=== PATIENT | female | born 1935 | race Caucasian/White ===

== ENCOUNTER 2017-02-24 23:49 | Inpatient (IN) ==
--- NOTE | 2017-02-24 23:56 | Emergency Department Note ---
Disposition Clinical Impression: Acute renal failure, Bilateral hip pain, Fall, CKD (chronic kidney disease), stage III, Osteoporosis, UTI (urinary tract infection) Disposition: Admitted As Inpatient Condition: Fair Referrals: Jazzy Powell MD [Primary Care Provider] - Forms: ED Satisfaction Letter Time of Disposition: 02:37 (Dr Tran [facility]) Lower Extremity Injury HPI - General Chief Complaint: ED Extremity Injury, Lower Stated Complaint: Right hip pain S/P fall, states numerous falls pas Time Seen by Provider: 02/24/17 23:53 Source: patient Mode of arrival: ambulatory Limitations: no limitations Nursing Notes Reviewed: Yes Vital Signs Reviewed: Yes - History of Present Illness HPI Narrative: Elderly female who has been ambulating at home in the past 3-4 days as had significant number of falls approximate 7 a day for yesterday to the day before the point where she fell this evening was unable to get up and bear weight family was unable to help her get up because of pain she denies numbness tingling patient just states that she feels like her legs are giving out when she has no energy she denies any calf pain or tenderness noted patient denies any ankle or knee pain patient just states that she gets cramping charley horses in her leg she supposed to use a walker but tends not to use the walker this evening when she was trying to walk to go [facility] she said she just collapsed denied the chest pain chest pressure she did have a little bit of shortness of breath denies any blurred vision double vision admits she fell the other day and struck and hit her head she denies Ane rashes or lesions she denies though any loss of bowel or bladder control family tells me though that she is intact mentally but has had no alteration of her mental status Pt Subjective Complaint: hip injury Injury location: Bilateral hip Onset (ago): 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 Mechanism of Injury: fall Context: fall, direct blow, walking Place: home Pain Severity: moderate Pain Scale: 5 Improves with: nothing Worsens with: nothing Associated symptoms: Reports: able to partially bear weight, snap/pop sensation , weakness - Related Data Home Medications Medication Instructions Recorded Confirmed Amlodipine [Norvasc] 10 mg PO DAILY 01/07/15 02/22/17 Atenolol [Tenormin] 100 mg PO DAILY 01/07/15 02/22/17 Cholecalciferol (Vitamin D3) 2,000 unit PO DAILY 01/07/15 02/22/17 [Vitamin D] Colesevelam HCl [Welchol] 1,250 mg PO BID 01/07/15 02/22/17 Febuxostat [Uloric] 80 mg PO DAILY 01/07/15 02/22/17 Omeprazole [PriLOSEC] 40 mg PO DAILY 01/07/15 02/22/17 OxyCODONE/APAP 5/325 [Percocet 1 each PO Q6HR 01/07/15 02/22/17 5/325] Multivitamin/Ferrous Sulfate 18 mg PO DAILY 05/13/16 02/22/17 [One-Daily Zmsqp-Hzd-Eypa Tab] [place]-3/Dha/Epa/Fish Oil [Fish Oil 1,000 mg PO DAILY 05/13/16 02/22/17 1,000 mg Softgel] Gabapentin [Neurontin] 600 mg PO TID 06/02/16 02/22/17 Levothyroxine [Synthroid] 75 mcg PO 0630 06/02/16 02/22/17 hydroCHLOROthiazide 12.5 mg PO DAILY 02/11/17 02/22/17 [Hydrochlorothiazide] Gemfibrozil [Lopid] 600 mg PO DAILY 02/22/17 02/22/17 Previous Rx's Medication Instructions Recorded Ondansetron HCl [Zofran] 4 mg PO Q6HR PRN #8 tablet 02/11/17 Allergies Allergy/AdvReac Type Severity Reaction Status Date / Time naproxen [From Naprosyn] Allergy Rash Verified 02/22/17 13:31 senna Allergy Hives Verified 02/22/17 13:31 All systems ED: reviewed and negative except as stated. Review of Systems: As Per HPI Constitutional: Reports: weakness. Denies: fever, chills Eyes: Denies: eye pain ENT ED: Denies: ear pain, throat pain, congestion Cardiovascular: Denies: chest pain, palpitations, dyspnea on exertion Respiratory: Reports: dyspnea. Denies: cough, wheezes Gastrointestinal: Denies: abdominal pain, nausea, vomiting Genitourinary: Denies: urgency, dysuria Musculoskeletal: Reports: other (pelvic and hip pain) Integumentary: Denies: rash, abrasion Neurological: Reports: weakness, abnormal gait. Denies: headache Psychiatric: Denies: anxiety Endocrine: Reports: fatigue. Denies: heat or cold intolerance Hematological/Lymphatic: Reports: easy bruising. Denies: easy bleeding Allergic/Immunologic: Denies: facial swelling Past Medical History - Past Medical History Attestation: Yes The following information was validated with the patient. Source: patient, old records reviewed, obtained from family, nursing notes reviewed Medical history: Reports: arthritis (Osteoarthritis and gout), CVA, diabetes, GERD, hyperlipidemia, hypertension, peripheral artery disease, renal disease, other (Chronic low back pain, spinal stenosis) Surgical history: Reports: cataract, hysterectomy, knee replacement, pacemaker/ AICD, other (Hemorrhoidectomy), vascular surgery (Abdominal aortic aneurysm repair) Psychiatric history: Reports: no psych history WASHERY BOSS history: Reports: no WASHERY BOSS history - Social History Smoking Status: Never smoker Smokeless Tobacco Status: No Alcohol use: Reports: none Drug use: Reports: none Physical Exam - General Limitations: no limitations General appearance: alert, in no apparent distress, anxious - Head Head exam: normocephalic, normal inspection - Expanded Head Exam 1 - Small hematoma - Eye Eye exam: Present: normal appearance, PERRL, EOMI - ENT ENT exam: normal exam, normal oropharynx, mucous membranes moist, normal external ear exam - Neck Neck exam: Present: normal inspection, full ROM, trachea midline - Chest Chest inspection: Present: normal inspection, symmetric chest wall rise - Respiratory Respiratory exam: Present: normal lung sounds bilaterally - Cardiovascular Cardiovascular exam: Present: regular rate, normal rhythm, normal heart sounds - Abdominal Exam Abdominal exam: Present: soft, Non-Tender, normal bowel sounds. Absent: mass, pulsatile mass - Expanded Upper Extremity Exam Shoulder exam: Present: normal inspection, full ROM Arm exam: Present: normal inspection, full ROM Elbow exam: Present: normal inspection, full ROM Forearm/Wrist exam: Present: normal inspection, full ROM Hand exam: Present: normal inspection, full ROM Vascular exam: Normal: capillary refill, radial pulse - Expanded Lower Extremity Exam Hip/Pelvis exam: Present: normal inspection, full ROM, tenderness (over peewee greater trochanteric processes), pelvis stable. Absent: swelling, deformity, internal rotation, shortening Upper leg exam: Present: normal inspection, full ROM Knee exam: Present: normal inspection, full ROM Lower leg exam: Present: normal inspection, full ROM Ankle exam: Present: normal inspection, full ROM Foot/toe exam: Present: normal inspection, full ROM Neurovascular/Tendon exam: Present: normal capillary refill, normal fine/light touch. Absent: motor deficit, sensory deficit, tendon deficit Gait: observed and limited by pain (can wgt transfer) - Back Exam Back exam: Present: normal inspection, full ROM. Absent: muscle spasm - Neurological Exam Neurological exam: Present: alert, oriented X3, CN II-XII intact - Psychiatric Psychiatric exam: Present: normal affect, normal mood - Skin Skin exam: Present: warm, dry, intact, normal color Course Course Narrative: Patient seen and examined laboratory data was ordered took a long time to obtain the results but her x-rays have been returned and reviewed showing no acute fractures dyscrasias or evidence of an acute stroke as result with reviewing the laboratory data her BUN/creatinine have gone up 4 times their standard since 2 weeks prior H could account for her increased falls and weakness where she follows with Dr. Mcknight at [facility] as result patient will be brought in IV hydrated if improved will be discharged home if failure we will transfer her to [facility] for further management - Consultations Consultation #1: Dr Tran Called at 0230 Vital Signs Temperature 98.9 F 02/24/17 23:58 Pulse Rate 70 02/24/17 23:58 Respiratory Rate 16 02/24/17 23:58 Blood Pressure 105/74 02/24/17 23:58 O2 Sat by Pulse Oximetry 96 02/24/17 23:58 Temperature 98.2 F 02/25/17 02:20 Pulse Rate 70 02/25/17 02:20 Respiratory Rate 16 02/25/17 02:20 Blood Pressure 112/82 02/25/17 02:20 O2 Sat by Pulse Oximetry 95 02/25/17 02:20 Oxygen Delivery Oxygen Delivery Room Air Extremity Injury, Lower - MDM Narrative Medical decision making narrative: Current falls is this due to metabolic or infectious etiology or is it due to osteoporosis fracture dislocation subluxation or even resulting in a fracture dislocation or subluxation cardiac and stroke are also considered - Medical Records Medical records reviewed: Yes I reviewed the patient's medical records. - Lab Data Lab results reviewed: Yes I reviewed the patient's lab results. Result diagrams: 02/25/17 02:05 02/25/17 01:05 Lab Results 02/24/17 02/25/17 02/25/17 Range/Units 01:20 01:05 01:05 WBC (4.3-11.1) K/mcL RBC (3.82-4.97) M/mcL Hgb (11.5-15.4) g/dL Hct (35.3-44.9) % MCV (83.0-100.0) fL MCH (28.0-33.3) pg MCHC (31.6-35.5) g/dL RDW (11.5-14.5) % Plt Count (140-400) K/mcL MPV (9.4-12.4) fL PT (9.4-12.1) Seconds INR APTT 26.6 (26.0-36.0) Seconds Sodium 135 L (136-145) mEq/L Potassium 3.4 L (3.5-4.5) mEq/L Chloride 108 (98-109) mEq/L Carbon Dioxide 12 L (19-29) mEq/L BUN 53 H (7-20) mg/dL Creatinine 4.29 H (0.57-1.11) mg/dL Est GFR ( Amer) 12 L (> 60) Est GFR (Non-Af Amer) 10 L (> 60) BUN/Creatinine Ratio 12 (6-26) Glucose 150 H (70-99) mg/dL Calculated Osmolality 297 (280-300) Calcium 9.6 (8.6-10.8) mg/dL Troponin I (0-0.03) ng/mL TSH (0.350-4.840) mcIU/mL Urine Color Yellow (Yellow) Urine Clarity Clear (Clear) Urine pH 5.0 (5.0-8.0) pH Units Ur Specific [place] 1.015 (1.010-1.025) Urine Protein 100 H (Neg-Trace) mg/dL Urine Glucose (UA) Normal (Normal) mg/dL Urine Ketones Negative (Negative) mg/dL Urine Blood Negative (Negative) Urine Nitrite Negative (Negative) Urine Bilirubin Negative (Negative) Urine Urobilinogen Normal (Normal) mg/dL Ur Leukocyte Esterase Small H (Negative) Urine Microscopic RBC 0-3 (0-3) per hpf Urine Microscopic WBC 5-15 H (0-3) per hpf Ur Squamous Epith Cells Few (None-Few) per lpf Urine Bacteria Few (None-Few) per hpf Hyaline Casts Moderate H (None-Few) per lpf Granular Casts Few H (None Seen) per lpf Ur Culture Indicated? YES A (NO) 02/25/17 02/25/17 02/25/17 Range/Units 01:05 01:05 01:05 WBC (4.3-11.1) K/mcL RBC (3.82-4.97) M/mcL Hgb (11.5-15.4) g/dL Hct (35.3-44.9) % MCV (83.0-100.0) fL MCH (28.0-33.3) pg MCHC (31.6-35.5) g/dL RDW (11.5-14.5) % Plt Count (140-400) K/mcL MPV (9.4-12.4) fL PT 11.3 (9.4-12.1) Seconds INR 1.1 APTT (26.0-36.0) Seconds Sodium (136-145) mEq/L Potassium (3.5-4.5) mEq/L Chloride (98-109) mEq/L Carbon Dioxide (19-29) mEq/L BUN (7-20) mg/dL Creatinine (0.57-1.11) mg/dL Est GFR ( Amer) (> 60) Est GFR (Non-Af Amer) (> 60) BUN/Creatinine Ratio (6-26) Glucose (70-99) mg/dL Calculated Osmolality (280-300) Calcium (8.6-10.8) mg/dL Troponin I 0.03 (0-0.03) ng/mL TSH 1.314 (0.350-4.840) mcIU/mL Urine Color (Yellow) Urine Clarity (Clear) Urine pH (5.0-8.0) pH Units Ur Specific [place] (1.010-1.025) Urine Protein (Neg-Trace) mg/dL Urine Glucose (UA) (Normal) mg/dL Urine Ketones (Negative) mg/dL Urine Blood (Negative) Urine Nitrite (Negative) Urine Bilirubin (Negative) Urine Urobilinogen (Normal) mg/dL Ur Leukocyte Esterase (Negative) Urine Microscopic RBC (0-3) per hpf Urine Microscopic WBC (0-3) per hpf Ur Squamous Epith Cells (None-Few) per lpf Urine Bacteria (None-Few) per hpf Hyaline Casts (None-Few) per lpf Granular Casts (None Seen) per lpf Ur Culture Indicated? (NO) 02/25/17 Range/Units 02:05 WBC 6.1 (4.3-11.1) K/mcL RBC 3.17 L (3.82-4.97) M/mcL Hgb 11.2 L (11.5-15.4) g/dL Hct 30.3 L (35.3-44.9) % MCV 95.6 (83.0-100.0) fL MCH 35.3 H (28.0-33.3) pg MCHC 37.0 H (31.6-35.5) g/dL RDW 11.7 (11.5-14.5) % Plt Count 144 (140-400) K/mcL MPV 13.4 H (9.4-12.4) fL PT (9.4-12.1) Seconds INR APTT (26.0-36.0) Seconds Sodium (136-145) mEq/L Potassium (3.5-4.5) mEq/L Chloride (98-109) mEq/L Carbon Dioxide (19-29) mEq/L BUN (7-20) mg/dL Creatinine (0.57-1.11) mg/dL Est GFR ( Amer) (> 60) Est GFR (Non-Af Amer) (> 60) BUN/Creatinine Ratio (6-26) Glucose (70-99) mg/dL Calculated Osmolality (280-300) Calcium (8.6-10.8) mg/dL Troponin I (0-0.03) ng/mL TSH (0.350-4.840) mcIU/mL Urine Color (Yellow) Urine Clarity (Clear) Urine pH (5.0-8.0) pH Units Ur Specific [place] (1.010-1.025) Urine Protein (Neg-Trace) mg/dL Urine Glucose (UA) (Normal) mg/dL Urine Ketones (Negative) mg/dL Urine Blood (Negative) Urine Nitrite (Negative) Urine Bilirubin (Negative) Urine Urobilinogen (Normal) mg/dL Ur Leukocyte Esterase (Negative) Urine Microscopic RBC (0-3) per hpf Urine Microscopic WBC (0-3) per hpf Ur Squamous Epith Cells (None-Few) per lpf Urine Bacteria (None-Few) per hpf Hyaline Casts (None-Few) per lpf Granular Casts (None Seen) per lpf Ur Culture Indicated? (NO) - Radiology Data Radiology results reviewed: Yes I reviewed the patient's radiology results. ITS Impressions Chest X-Ray 02/25/17 00:01 IMPRESSION: No acute abnormality is detected. D/ / Quoc Mcwilliams MD / Quoc Mcwilliams MD Interpreting Provider: Quoc Mcwilliams MD Head CT 02/25/17 00:01 IMPRESSION: No acute intracranial abnormality. D/ / Dann Beckford MD / Dann Beckford MD Interpreting Provider: Dann Beckford MD Pelvis CT 02/25/17 00:01 IMPRESSION: No evidence for fracture. D/ / Dann Beckford MD / Dann Beckford MD Interpreting Provider: Dann Beckford MD - EKG Data EKG attestation: Yes I reviewed and interpreted this EKG. EKG results narrative: Paced rhythm rate 69 OH-2 51 QRS 172 Q-T 506 axis -65 Critical Care Time Critical Care Time: Yes Total Critical Care Time: 45 Attestation: Critical care performed: A 5 minutes as a result of an acute on chronic renal failure with significant worsening of the renal functions with the patient having elevated BUN/creatinine 4 times her normal significant risk of loss of renal function which ultimately is resulting in secondary computations as frequent falls and weakness Time is exclusive of separately billable procedures. Time includes: direct patient care, patient reassessment, coordination of patient care, interpretation of data (laboratory data, radiology data, and respiratory data), review of patient's medical records, medical consultation and documentation of patient care. Procedures included in critical care time: Procedures excluded from critical care time:
[2017-02-25 01:29] LABS: Calcium 9.6 mg/dL (8.6-10.8); INR 1.1; Potassium 3.4 mEq/L (3.5-4.5); Prothrombin Time 11.3 Seconds (9.4-12.1)
[2017-02-25 02:13] LABS: Basophils # 0.1 K/mcL (0.0-0.2); Basophils % 0.8 %; Eosinophils # 0.2 K/mcL (0.0-0.6); Eosinophils % 2.5 %; Hematocrit 30.3 % (35.3-44.9); Hemoglobin 11.2 g/dL (11.5-15.4); Immature Granulocytes % 0.3 % (0-4); Lymphocytes # 1.9 K/mcL (0.6-4.6); Lymphocytes % 30.8 %; Mean Corpuscular Hemoglobin 35.3 pg (28.0-33.3); Mean Corpuscular Volume 95.6 fL (83.0-100.0); Mean Platelet Volume 13.4 fL (9.4-12.4); Monocytes # 0.5 K/mcL (0.0-1.3); Monocytes % 8.6 %; Neutrophils # 3.5 K/mcL (1.6-8.9); Platelet Count 144 K/mcL (140-400); Red Blood Count 3.17 M/mcL (3.82-4.97); Red Cell Distribution Width 11.7 % (11.5-14.5)
[2017-02-25 02:17] LABS: Bilirubin,Urine Negative (Negative); Blood,Urine Negative (Negative); Clarity,Urine Clear (Clear); Color,Urine Yellow (Yellow); Glucose,Urine (UA) Normal (Normal); Ketones,Urine Negative (Negative); Leukocyte Esterase,Urine Small (Negative); Nitrite,Urine Negative (Negative); Protein,Urine 100 mg/dL (Neg-Trace); Specific Gravity,Urine 1.015 (1.010-1.025); Urobilinogen,Urine Normal (Normal)
[2017-02-25] MEDS ORDERED: 0.9 % Sodium Chloride 1,000 ML IVC SCH ×2 (02:30→04:39)
[2017-02-25 02:38] LABS: RBC,Urine 0-3 per hpf (0-3); Squamous Epithelial Cell,Urine Few per lpf (None-Few)
[2017-02-25 02:39] LABS: Bacteria,Urine Few per hpf (None-Few); Granular Casts,Urine Few per lpf (None Seen); Hyaline Casts,Urine Moderate per lpf (None-Few)
[2017-02-25 03:32] LABS: Anisocytosis 1+ (Not Present); Platelet Estimate Normal (Normal)
[2017-02-25] MEDS: 0.9 % Sodium Chloride 1,000 ML IVC SCH (04:30)
[2017-02-25] MEDS ORDERED: Naloxone 0.4 MG/ML INJ IVP PRN (04:39)
[2017-02-25] MEDS ORDERED: Ondansetron ODT 4 MG TAB.RAPDIS SL PRN (04:39)
[2017-02-25] MEDS ORDERED: Ondansetron ODT 4 MG TAB.RAPDIS PO PRN (04:39)
[2017-02-25] MEDS: *HR* OxyCODONE/APAP 5/325 TABLET PO SCH ×3 (06:36→18:43)
[2017-02-25] MEDS: (Omega-3/Dha/Epa/Fish Oil [Fish Oil 1,000 Mg Softgel]) PO SCH (07:44)
[2017-02-25] MEDS: (Febuxostat [Uloric] 80 MG) PO SCH (07:44)
[2017-02-25] MEDS: Multivit/Ca/Min/Fe/FA 1 TAB TABLET PO SCH (08:02)
[2017-02-25] MEDS: Gabapentin 300 MG CAPSULE PO SCH (08:02)
[2017-02-25] MEDS: Cholecalciferol (D-3) 1,000 UNIT TABLET PO SCH (08:03)
[2017-02-25] MEDS ORDERED: amLODIPine 5 MG TABLET PO SCH (09:00)
[2017-02-25] MEDS ORDERED: hydroCHLOROthiazide 25 MG TABLET PO SCH (09:00)
--- NOTE | 2017-02-25 15:31 | Internal Med History&Physical ---
Date of Encounter: 02/25/17 Time of Encounter: 15:00 Assessment and Plan (1) Fall Current visit: Yes Status: Acute Suspect due at least in part to orthostatic hypotension. Her Norvasc and hydrochlorothiazide will be held. IV fluids will be given and orthostatic vital signs will be checked in a.m. Qualifiers: Encounter type: initial encounter Qualified Code(s): W19.XXXA - Unspecified fall, initial encounter (2) Acute renal failure Current visit: Yes Status: Acute Creatinine was 1.76 on 12/11/2016. Will give IV fluids and hold HCTZ. Recheck labs in a.m. Qualifiers: Acute renal failure type: unspecified Qualified Code(s): N17.9 - Acute kidney failure, unspecified (3) UTI (urinary tract infection) Current visit: Yes Status: Acute Urine culture was ordered and she was given Rocephin in the emergency room. Will continue this with lactobacillus. Qualifiers: Urinary tract infection type: site unspecified Hematuria presence: without hematuria Qualified Code(s): N39.0 - Urinary tract infection, site not specified (4) CKD (chronic kidney disease), stage III Current visit: Yes Status: Chronic Will monitor renal indices. (5) Anemia Current visit: Yes Status: Acute We will order anemia testing in a.m. Suspect due at least in part to chronic kidney disease. Qualifiers: Anemia type: unspecified type Qualified Code(s): D64.9 - Anemia, unspecified (6) Hypokalemia Current visit: Yes Status: Acute We will give supplemental potassium and hold HCTZ. Recheck labs in a.m. (7) Bilateral hip pain Current visit: Yes Status: Acute We will give scheduled Tylenol. Internal Medicine - H&P: HPI Chief complaint: Falls with weakness Admitted From: Home Plans for Post Hospital Care: Home History of present illness: Ms. Harrison is a 81 year old female who came to emergency room after experiencing multiple falls with weakness over the past 2 weeks. She describes sensation of lightheadedness and visual darkness upon arising from a seated position initiating to walk. She denies syncope. She saw her PCP Dr. Powell approximately 2 days ago and was given medication for reported vomiting. She was evaluated in emergency room and found to have acute on chronic renal failure. She was admitted to MedSurg floor for ongoing care needs. Her cardiovascular history is significant for hypertension. She states blood pressure readings at home are approximately 140/70. She is uncertain if she has a diagnosis of heart failure. She does get dyspneic on exertion. She denies HI DVT or pulmonary embolus. She has had aortic aneurysm repair and a pacemaker placed in 2006 for uncertain diagnosis. Past Med Surg Social Fam HX - Past Medical History Medical history: arthritis, CVA, diabetes, GERD, hyperlipidemia, hypertension, peripheral artery disease, renal disease, other Psychiatric history: no psych history - Past Surgical History Surgical History: cataract, hysterectomy, knee replacement, pacemaker/AICD, other, vascular surgery, AICD, pacemaker - Social History Smoking Status: Never smoker Smokeless Tobacco Status: No Alcohol use: none Drug use: none - Family History Daughter Living Status: Age at : 18 Cause of : lymphoma Hx Family Cancer: Yes Internal Medicine - H&P: Meds Amlodipine [Norvasc] 10 mg PO DAILY 01/07/15 [History] Atenolol [Tenormin] 100 mg PO DAILY 01/07/15 [History] Cholecalciferol (Vitamin D3) [Vitamin D] 2,000 unit PO DAILY 01/07/15 [History] Colesevelam HCl [Welchol] 1,250 mg PO BID 01/07/15 [History] Febuxostat [Uloric] 80 mg PO DAILY 01/07/15 [History] Omeprazole [PriLOSEC] 40 mg PO DAILY 01/07/15 [History] OxyCODONE/APAP 5/325 [Percocet 5/325] 1 each PO Q6HR 01/07/15 [History] Multivitamin/Ferrous Sulfate [One-Daily Bgslr-Nne-Fnch Tab] 18 mg PO DAILY 05/13 [History] [place]-3/Dha/Epa/Fish Oil [Fish Oil 1,000 mg Softgel] 1,000 mg PO DAILY 05/13/16 [History] Gabapentin [Neurontin] 600 mg PO TID 06/02/16 [History] Levothyroxine [Synthroid] 75 mcg PO 0630 06/02/16 [History] Ondansetron HCl [Zofran] 4 mg PO Q6HR PRN #8 tablet 02/11/17 [Rx] hydroCHLOROthiazide [Hydrochlorothiazide] 12.5 mg PO DAILY 02/11/17 [History] Gemfibrozil [Lopid] 600 mg PO DAILY 02/22/17 [History] 3 Allergy/AdvReac Type Severity Reaction Status Date / Time naproxen [From Naprosyn] Allergy Rash Verified 02/22/17 13:31 senna Allergy Hives Verified 02/22/17 13:31 All Systems PM: A 10-system review of systems was performed and is negative for pertinent findings except as documented above in the HPI. Review of systems: Gen.: She states her weight has decreased approximately 8 pounds in the past few weeks which she attributes to vomiting and poor oral intake. She reports that weight had been stable for several months prior to that. Cardiovascular: As per history of present illness Respiratory: She is a lifelong nonsmoker and denies chronic lung disease GI: She denies disorders of her liver gallbladder or exocrine pancreas : She has chronic kidney disease stage III and follows with a [employer]. She denies other kidney or bladder disorders. Neurologic: She claims she had a stroke in 1977 with facial weakness but had full recovery. She denies other strokes or seizures. Endocrine: She was diagnosed with DM 2 approximately 2006. She has hypothyroidism, hyperlipidemia, and gout. Hematology/oncology: She denies internal malignancies. She was unaware she had anemia on emergency room labs. She denies previous history of anemia. 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 - Constitutional Vitals: Temp Pulse Resp BP Pulse Ox 98.0 F 70 14 106/60 96 02/25/17 11:11 02/25/17 11:11 02/25/17 11:11 02/25/17 11:11 02/25/17 11:11 Exam: Gen.: She is a well-developed well-nourished female lying in bed who appears in no acute distress at present time. HEENT: Head is atraumatic and normocephalic. Eyes: EOMI. There is no scleral icterus. Mouth: Mucosa is moist. Neck: Supple and nontender. There is no thyromegaly or adenopathy noted. Heart: Regular without murmurs gallops or ectopics Lungs: No wheezes or crackles are heard. Abdomen: Soft and nontender. No masses or guarding are noted. 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 She has mild DJD changes of her hands. Dorsalis pedis and posterior tibial pulses are trace palpable bilaterally. Neurologic: Mental status: She is talkative and a good historian. Cranial nerves: Smile is symmetric. Forehead wrinkles bilaterally. Tongue protrudes midline. EOMI. Motor: There is no pronator drift. Cerebellar: Finger to nose is intact bilaterally. Skin: Warm and dry Internal Med - H&P Results - Labs CBC & Chem 7: 02/25/17 02:05 02/25/17 01:05
[2017-02-25] MEDS: *HR* Heparin 5,000 UNIT/ML VIAL SQ SCH (18:42)
[2017-02-25] MEDS: D5% in 0.45% NACL w KCl 10 MEQ/1,000 ML MLS IVC SCH (18:42)
[2017-02-26] MEDS: D5% in 0.45% NACL w KCl 10 MEQ/1,000 ML MLS IVC SCH (04:36)
[2017-02-26 05:23] LABS: Basophils % 0.8 %; Eosinophils # 0.1 K/mcL (0.0-0.6); Eosinophils % 2.7 %; Hematocrit 26.3 % (35.3-44.9); Hemoglobin 9.1 g/dL (11.5-15.4); Immature Granulocytes % 0.5 % (0-4); Lymphocytes # 1.7 K/mcL (0.6-4.6); Lymphocytes % 46.5 %; Mean Corpuscular HGB Conc 34.6 g/dL (31.6-35.5); Mean Corpuscular Hemoglobin 35.5 pg (28.0-33.3); Mean Corpuscular Volume 102.7 fL (83.0-100.0); Mean Platelet Volume 13.5 fL (9.4-12.4); Monocytes # 0.3 K/mcL (0.0-1.3); Monocytes % 7.6 %; Nucleated Red Blood Cells 0.5 /100 WBC (0); Platelet Count 131 K/mcL (140-400); Red Blood Count 2.56 M/mcL (3.82-4.97); Red Cell Distribution Width 12.2 % (11.5-14.5); Segmented Neutrophils % 41.9 %
[2017-02-26 05:29] LABS: Neutrophils # 1.6 K/mcL (1.6-8.9)
[2017-02-26 05:39] LABS: Magnesium 1.4 mg/dL (1.6-2.6)
[2017-02-26 05:45] LABS: Potassium 3.5 mEq/L (3.5-4.5)
[2017-02-26] MEDS ORDERED: *HR* Enoxaparin 40 MG/0.4 ML SYRINGE SQ SCH (06:00)
[2017-02-26] MEDS: *HR* Heparin 5,000 UNIT/ML VIAL SQ SCH ×2 (06:21→16:22)
[2017-02-26] MEDS: *HR* OxyCODONE/APAP 5/325 TABLET PO SCH ×5 (06:22→23:37)
--- NOTE | 2017-02-26 09:52 | Internal Med Progress Note ---
Date of Encounter: 02/26/17 Time of Encounter: 09:40 - Assessment and plan (1) Fall Current Visit: Yes Status: Acute Assessment and plan: February 26. Continue to hold Norvasc and HCTZ. Continue IV fluids and recheck labs in a.m. We will order PT and OT evaluation. Qualifiers: Encounter type: initial encounter Qualified Code(s): W19.XXXA - Unspecified fall, initial encounter (2) Acute renal failure Current Visit: Yes Status: Acute Assessment and plan: February 26. Improved. Continue IV fluids and withholding HCTZ. Recheck labs in a.m. Qualifiers: Acute renal failure type: unspecified Qualified Code(s): N17.9 - Acute kidney failure, unspecified (3) UTI (urinary tract infection) Current Visit: Yes Status: Acute Assessment and plan: February 26. Urine culture report is pending. Continue Rocephin and lactobacillus. Qualifiers: Urinary tract infection type: site unspecified Hematuria presence: without hematuria Qualified Code(s): N39.0 - Urinary tract infection, site not specified (4) CKD (chronic kidney disease), stage III Current Visit: Yes Status: Chronic Assessment and plan: February 26. Will monitor renal indices. (5) Anemia Current Visit: Yes Status: Acute Assessment and plan: February 26. Anemia testing is pending. Hemoglobin is decreased to 9.1 with IV fluids. Qualifiers: Anemia type: unspecified type Qualified Code(s): D64.9 - Anemia, unspecified (6) Hypokalemia Current Visit: Yes Status: Acute Assessment and plan: February 26. Improved. Continue IV fluids with potassium supplement (7) Bilateral hip pain Current Visit: Yes Status: Acute Assessment and plan: February 26. Continue scheduled Percocet. Will order PT and OT evaluations. (8) Hypomagnesemia Current Visit: Yes Status: Acute Assessment and plan: February 26. Suspect due primarily to diuretic use. We will hold diuretics as per above and give magnesium supplement. - Subjective Interval history: February 26. She has no new complaints - Constitutional Vitals: Temp Pulse Resp BP Pulse Ox 98.4 F 70 12 112/62 93 02/26/17 06:32 02/26/17 06:32 02/26/17 06:32 02/26/17 06:32 02/26/17 06:32 Exam: She is resting comfortably in bed. Her affect is bright and cheerful. Extremities show no edema. I reviewed her medications and lab results. Internal Medicine: Result - Labs CBC & Chem 7: 02/26/17 04:24 02/26/17 04:24 Labs: Short CBC 02/26/17 Range/Units 04:24 WBC 3.7 L (4.3-11.1) K/mcL Hgb 9.1 L D (11.5-15.4) g/dL Hct 26.3 L (35.3-44.9) % Plt Count 131 L (140-400) K/mcL Neutrophils # 1.6 (1.6-8.9) K/mcL BMP 02/26/17 04:24 Sodium 142 D Potassium 3.5 Chloride 116 H Carbon Dioxide 15 L BUN 43 H D Creatinine 3.50 H Glucose 141 H Calcium 8.0 L D - ABG Interpretation ABG results: PT/INR, D-dimer PT 11.3 Seconds (9.4-12.1) 02/25/17 01:05 Consult Discharge Plan - Plan Referrals: Jazzy Powell MD [Primary Care Provider] - 1 week
[2017-02-26] MEDS: Gabapentin 300 MG CAPSULE PO SCH (09:53)
[2017-02-26] MEDS: Cholecalciferol (D-3) 1,000 UNIT TABLET PO SCH (09:53)
[2017-02-26] MEDS: Multivit/Ca/Min/Fe/FA 1 TAB TABLET PO SCH (09:53)
[2017-02-26] MEDS: (Febuxostat [Uloric] 80 MG) PO SCH (09:57)
[2017-02-26] MEDS: (Omega-3/Dha/Epa/Fish Oil [Fish Oil 1,000 Mg Softgel]) PO SCH (09:57)
[2017-02-26] MEDS: Magnesium Oxide 400 MG TABLET PO SCH ×2 (13:35→20:04)
[2017-02-26] MEDS: D5 IVC SCH ×2 (15:18→23:38)
[2017-02-26] MEDS: POTASSIUM CHLORIDE IVC SCH ×2 (15:18→23:38)
[2017-02-26] MEDS: NACL IVC SCH ×2 (15:18→23:38)
--- NOTE | 2017-02-26 17:59 | Electrocardiograph Report ---
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
[2017-02-26 18:40] LABS: Folate 13.8 ng/mL (7.0-31.4)
[2017-02-26] MEDS: Lactobacillus 1 EACH CAP.SPRINK PO SCH (20:04)
[2017-02-27 05:11] LABS: Basophils % 0.8 %; Eosinophils # 0.1 K/mcL (0.0-0.6); Eosinophils % 3.8 %; Hematocrit 26.1 % (35.3-44.9); Hemoglobin 9.1 g/dL (11.5-15.4); Immature Granulocytes % 0.5 % (0-4); Lymphocytes # 1.7 K/mcL (0.6-4.6); Mean Corpuscular HGB Conc 34.9 g/dL (31.6-35.5); Mean Corpuscular Hemoglobin 35.3 pg (28.0-33.3); Mean Corpuscular Volume 101.2 fL (83.0-100.0); Mean Platelet Volume 13.4 fL (9.4-12.4); Monocytes # 0.3 K/mcL (0.0-1.3); Monocytes % 7.8 %; Neutrophils # 1.5 K/mcL (1.6-8.9); Platelet Count 133 K/mcL (140-400); Red Blood Count 2.58 M/mcL (3.82-4.97); Red Cell Distribution Width 12.5 % (11.5-14.5); Segmented Neutrophils % 41.1 %
[2017-02-27 05:27] LABS: Calcium 7.8 mg/dL (8.6-10.8); Potassium 3.9 mEq/L (3.5-4.5)
[2017-02-27] MEDS: *HR* OxyCODONE/APAP 5/325 TABLET PO SCH ×3 (06:56→20:21)
[2017-02-27] MEDS: D5% in 0.45% NACL w KCl 10 MEQ/1,000 ML MLS IVC SCH (07:29)
[2017-02-27] MEDS: 0.9 % Sodium Chloride 1,000 ML IVC SCH (07:31)
[2017-02-27] MEDS: NACL IVC SCH (07:40)
[2017-02-27] MEDS: POTASSIUM CHLORIDE IVC SCH (07:40)
[2017-02-27] MEDS: D5 IVC SCH (07:40)
[2017-02-27] MEDS: Gabapentin 300 MG CAPSULE PO SCH (08:57)
[2017-02-27] MEDS: (Febuxostat [Uloric] 80 MG) PO SCH (08:57)
[2017-02-27] MEDS: Magnesium Oxide 400 MG TABLET PO SCH ×2 (08:57→20:20)
[2017-02-27] MEDS: Lactobacillus 1 EACH CAP.SPRINK PO SCH (08:57)
[2017-02-27] MEDS: (Omega-3/Dha/Epa/Fish Oil [Fish Oil 1,000 Mg Softgel]) PO SCH (08:58)
[2017-02-27] MEDS: Multivit/Ca/Min/Fe/FA 1 TAB TABLET PO SCH (08:58)
[2017-02-27] MEDS: Cholecalciferol (D-3) 1,000 UNIT TABLET PO SCH (09:06)
--- NOTE | 2017-02-27 09:44 | Internal Med Progress Note ---
Date of Encounter: 02/27/17 Time of Encounter: 09:35 - Assessment and plan (1) Fall Current Visit: Yes Status: Acute Assessment and plan: February 26. Continue to hold Norvasc and HCTZ. Continue IV fluids and recheck labs in a.m. We will order PT and OT evaluation. February 27. Continue present regimen. Anticipate discharge home tomorrow if stable. Qualifiers: Encounter type: initial encounter Qualified Code(s): W19.XXXA - Unspecified fall, initial encounter (2) Acute renal failure Current Visit: Yes Status: Acute Assessment and plan: February 26. Improved. Continue IV fluids and withholding HCTZ. Recheck labs in a.m. February 2. Further improved. Continue IV fluids and hold HCTZ. Recheck labs in a.m. Qualifiers: Acute renal failure type: unspecified Qualified Code(s): N17.9 - Acute kidney failure, unspecified (3) UTI (urinary tract infection) Current Visit: Yes Status: Acute Assessment and plan: February 26. Urine culture report is pending. Continue Rocephin and lactobacillus. February 27. Urine culture showed no growth. We will discontinue Rocephin and lactobacillus. Qualifiers: Urinary tract infection type: site unspecified Hematuria presence: without hematuria Qualified Code(s): N39.0 - Urinary tract infection, site not specified (4) CKD (chronic kidney disease), stage III Current Visit: Yes Status: Chronic Assessment and plan: February 26. Will monitor renal indices. (5) Anemia Current Visit: Yes Status: Acute Assessment and plan: February 26. Anemia testing is pending. Hemoglobin is decreased to 9.1 with IV fluids. February 27. Anemia testing results reviewed. No factor deficiency present. Continue monitor labs. Qualifiers: Anemia type: unspecified type Qualified Code(s): D64.9 - Anemia, unspecified (6) Hypokalemia Current Visit: Yes Status: Acute Assessment and plan: February 26. Improved. Continue IV fluids with potassium supplement (7) Bilateral hip pain Current Visit: Yes Status: Acute Assessment and plan: February 26. Continue scheduled Percocet. Will order PT and OT evaluations. (8) Hypomagnesemia Current Visit: Yes Status: Acute Assessment and plan: February 26. Suspect due primarily to diuretic use. We will hold diuretics as per above and give magnesium supplement. October 2. Continue magnesium oxide and recheck labs in a.m. - Subjective Interval history: February 26. She has no new complaints February 27. She has no new complaints and feels stronger. - Constitutional Vitals: Temp Pulse Resp BP Pulse Ox 98.2 F 75 18 108/69 96 02/27/17 06:50 02/27/17 06:50 02/27/17 06:50 02/27/17 06:50 02/27/17 06:50 Exam: She is sitting in a chair at bedside resting comfortably. Her affect is bright and cheerful. Extremities show 0-trace edema bilaterally. I reviewed her vital signs, labs and medications. Internal Medicine: Result - Labs CBC & Chem 7: 02/27/17 04:21 02/27/17 04:21 Labs: Short CBC 02/27/17 Range/Units 04:21 WBC 3.7 L (4.3-11.1) K/mcL Hgb 9.1 L (11.5-15.4) g/dL Hct 26.1 L (35.3-44.9) % Plt Count 133 L (140-400) K/mcL Neutrophils # 1.5 L (1.6-8.9) K/mcL BMP 02/27/17 04:21 Sodium 140 Potassium 3.9 Chloride 116 H Carbon Dioxide 14 L BUN 34 H Creatinine 2.69 H Glucose 152 H Calcium 7.8 L - ABG Interpretation ABG results: PT/INR, D-dimer PT 11.3 Seconds (9.4-12.1) 02/25/17 01:05 Consult Discharge Plan - Plan Referrals: Jazzy Powell MD [Primary Care Provider] - 1 week
[2017-02-27] MEDS: *HR* Heparin 5,000 UNIT/ML VIAL SQ SCH (11:40)
[2017-02-28] MEDS: *HR* OxyCODONE/APAP 5/325 TABLET PO SCH ×2 (05:00→06:20)
[2017-02-28 06:09] VITALS: BP 104/63
[2017-02-28 06:37] LABS: Basophils % 0.6 %; Eosinophils # 0.2 K/mcL (0.0-0.6); Eosinophils % 3.4 %; Hematocrit 27.3 % (35.3-44.9); Hemoglobin 9.5 g/dL (11.5-15.4); Immature Granulocytes % 0.8 % (0-4); Lymphocytes % 40.9 %; Mean Corpuscular HGB Conc 34.8 g/dL (31.6-35.5); Mean Corpuscular Hemoglobin 35.4 pg (28.0-33.3); Mean Corpuscular Volume 101.9 fL (83.0-100.0); Mean Platelet Volume 12.5 fL (9.4-12.4); Monocytes # 0.4 K/mcL (0.0-1.3); Monocytes % 7.7 %; Neutrophils # 2.3 K/mcL (1.6-8.9); Platelet Count 153 K/mcL (140-400); Red Blood Count 2.68 M/mcL (3.82-4.97); Red Cell Distribution Width 12.8 % (11.5-14.5); Segmented Neutrophils % 46.6 %
[2017-02-28 06:54] LABS: Magnesium 1.3 mg/dL (1.6-2.6); Potassium 4.4 mEq/L (3.5-4.5)
[2017-02-28] MEDS: Cholecalciferol (D-3) 1,000 UNIT TABLET PO SCH (07:49)
[2017-02-28] MEDS: Magnesium Oxide 400 MG TABLET PO SCH (07:49)
[2017-02-28] MEDS: Multivit/Ca/Min/Fe/FA 1 TAB TABLET PO SCH (07:49)
[2017-02-28] MEDS: Gabapentin 300 MG CAPSULE PO SCH (07:49)
[2017-02-28] MEDS: (Omega-3/Dha/Epa/Fish Oil [Fish Oil 1,000 Mg Softgel]) PO SCH (08:05)
[2017-02-28] MEDS: (Febuxostat [Uloric] 80 MG) PO SCH (08:05)
--- NOTE | 2017-02-28 09:32 | Discharge Summary ---
Date of Encounter: 02/28/17 Time of Encounter: 09:20 - Discharge Diagnosis (1) Acute renal failure Priority: Primary Status: Acute Qualifiers: Acute renal failure type: unspecified Qualified Code(s): N17.9 - Acute kidney failure, unspecified (2) Fall Priority: Secondary Status: Acute Qualifiers: Encounter type: initial encounter Qualified Code(s): W19.XXXA - Unspecified fall, initial encounter (3) UTI (urinary tract infection) Priority: Secondary Status: Resolved Qualifiers: Urinary tract infection type: site unspecified Hematuria presence: without hematuria Qualified Code(s): N39.0 - Urinary tract infection, site not specified (4) CKD (chronic kidney disease), stage III Priority: Secondary Status: Chronic (5) Anemia Priority: Secondary Status: Chronic Qualifiers: Anemia type: unspecified type Qualified Code(s): D64.9 - Anemia, unspecified (6) Hypokalemia Priority: Secondary Status: Resolved (7) Bilateral hip pain Priority: Secondary Status: Acute (8) Hypomagnesemia Priority: Secondary Status: Acute - Discharge Medications Prescriptions: Magnesium Oxide [Mag-Ox] 400 mg PO BID #14 tablet Home Medications: Atenolol [Tenormin] 100 mg PO DAILY 01/07/15 [History] Cholecalciferol (Vitamin D3) [Vitamin D3] 2,000 unit PO DAILY 01/07/15 [History] Colesevelam HCl [Welchol] 1,250 mg PO BID 01/07/15 [History] Febuxostat [Uloric] 80 mg PO DAILY 01/07/15 [History] OxyCODONE/APAP 5/325 [Percocet 5/325 MG] 1 each PO Q6HR 01/07/15 [History] Multivitamin/Ferrous Sulfate [One-Daily Ezjfv-Rpe-Gynn Tab] 18 mg PO DAILY 05/13 [History] [place]-3/Dha/Epa/Fish Oil [Fish Oil 1,000 mg Softgel] 1,000 mg PO DAILY 05/13/16 [History] Levothyroxine [Synthroid] 75 mcg PO 0630 06/02/16 [History] Ondansetron HCl [Zofran] 4 mg PO Q6HR PRN #8 tablet 02/11/17 [Rx] Gemfibrozil [Lopid] 600 mg PO DAILY 02/22/17 [History] Gabapentin [Neurontin] 300 mg PO DAILY capsule 02/28/17 [Rx] Magnesium Oxide [Mag-Ox] 400 mg PO BID #14 tablet 02/28/17 [Rx] Omeprazole [PriLOSEC] 20 mg PO DAILY PRN #0 02/28/17 [Rx] Allergies/Adverse Reactions: 3 Allergy/AdvReac Type Severity Reaction Status Date / Time naproxen [From Naprosyn] Allergy Rash Verified 02/22/17 13:31 senna Allergy Hives Verified 02/22/17 13:31 Date of admission: 02/25/17 15:24 Primary care physician: Jazzy Powell Consults: 02/26/17 09:54 Consult to Occupational Therapy [CONS] Routine Comment: Evaluate, develop and implement POC Reason for Consult: Falls Consult to Physical Therapy [CONS] Routine Comment: Evaluate, develop and implement POC Reason for Consult: Falls - Patient Status Disposition: Home Health Service Condition: Fair Functional capacity at discharge: uses cane/walker Overall status at discharge: patient is progressing back to baseline - Discharge Instructions Follow Up With: Jazzy Powell MD [Primary Care Provider] - 1 week - Diet and Activity Activity: resume usual activities as tolerated Diet: advance to your usual diet Hospital course: Ms. Harrison is a 81 year old female who came to emergency room after experiencing multiple falls with weakness over the past 2 weeks. She describes sensation of lightheadedness and visual darkness upon arising from a seated position initiating to walk. She denies syncope. She saw her PCP Dr. Powell approximately 2 days ago and was given medication for reported vomiting. She was evaluated in emergency room and found to have acute on chronic renal failure. She was admitted to [facility] for ongoing care needs. Initial orders were written by the emergency room physician. I saw her on February 25 and performed a history and physical. Norvasc and hydrochlorothiazide were discontinued. IV fluids were given. BUN and creatinine improved to 24 and 1.81 respectively by the day of discharge with estimated GFR of 27. Orthostatic vital signs showed no pressure drop on standing. She will remain off Norvasc and HCTZ at discharge. Her blood pressure remained satisfactory. Her weight increased to 77.273 kg by the time of discharge with the hydration. Magnesium level returned low at 1.4. She was started on magnesium oxide and this will be continued at discharge for 7 days. Anemia testing showed iron 80, transferrin saturation 35%, ferritin 334, B12 1066, and folate 13.8. I suspect the anemia is primarily due to chronic kidney disease. She was started empirically on Rocephin on admission for possible UTI. Urine culture showed no growth and Rocephin was discontinued. On February 28 she wished to be discharged home. I offered her staying in swing bed but she wished to be discharged home and have home health services. She will follow with her PCP Dr. Powell within 1 week. - Time Spent with Patient Total time spent providing and/or coordinating discharge services: - Constitutional Vitals: Temp Pulse Resp BP Pulse Ox 98.9 F 70 17 104/63 98 02/28/17 06:08 02/28/17 06:08 02/28/17 06:08 02/28/17 06:08 02/28/17 06:08
--- NOTE | 2017-02-28 09:40 | Physician Discharge Referral ---
Home Health/Hosp Referral Info Transfer to: Home Health Attending Provider: Marc Provider in Charge Post Discharge: PCP Travis) - Diagnosis (1) Acute renal failure Priority: Primary Status: Acute (2) Fall Priority: Secondary Status: Acute (3) UTI (urinary tract infection) Priority: Secondary Status: Resolved (4) CKD (chronic kidney disease), stage III Priority: Secondary Status: Chronic (5) Anemia Priority: Secondary Status: Chronic (6) Hypokalemia Priority: Secondary Status: Resolved (7) Bilateral hip pain Priority: Secondary Status: Acute (8) Hypomagnesemia Priority: Secondary Status: Acute - Respiratory Orders Smoking Cessation: Smoking cessation has been advised. For more information, call the [employer] Tobacco Quit Line at 2-640-BEEC-NOW. - Diet/Nutrition Diet/Nutrition Orders: Renal - Activity Activity Orders: Ambulate, Walker - Services Needed Following services are medically necessary services: Nursing, Home Health Aide, Physical Therapy, Occupational Therapy - Transfer Medications Prescriptions: Magnesium Oxide [Mag-Ox] 400 mg PO BID #14 tablet Home Medications: Atenolol [Tenormin] 100 mg PO DAILY 01/07/15 [History] Cholecalciferol (Vitamin D3) [Vitamin D3] 2,000 unit PO DAILY 01/07/15 [History] Colesevelam HCl [Welchol] 1,250 mg PO BID 01/07/15 [History] Febuxostat [Uloric] 80 mg PO DAILY 01/07/15 [History] OxyCODONE/APAP 5/325 [Percocet 5/325 MG] 1 each PO Q6HR 01/07/15 [History] Multivitamin/Ferrous Sulfate [One-Daily Pebtb-Vti-Sfvg Tab] 18 mg PO DAILY 05/13 [History] Harrison-3/Dha/Epa/Fish Oil [Fish Oil 1,000 mg Softgel] 1,000 mg PO DAILY 05/13/16 [History] Levothyroxine [Synthroid] 75 mcg PO 0630 06/02/16 [History] Ondansetron HCl [Zofran] 4 mg PO Q6HR PRN #8 tablet 02/11/17 [Rx] Gemfibrozil [Lopid] 600 mg PO DAILY 02/22/17 [History] Gabapentin [Neurontin] 300 mg PO DAILY capsule 02/28/17 [Rx] Magnesium Oxide [Mag-Ox] 400 mg PO BID #14 tablet 02/28/17 [Rx] Omeprazole [PriLOSEC] 20 mg PO DAILY PRN #0 02/28/17 [Rx] Allergies/Adverse Reactions: 3 Allergy/AdvReac Type Severity Reaction Status Date / Time naproxen [From Naprosyn] Allergy Rash Verified 02/22/17 13:31 senna Allergy Hives Verified 02/22/17 13:31 Certification: Further, I certify that my clinical findings support that this patient is homebound (i.e. absences from home require considerable and taxing effort and are for medical reasons or voodoo services or infrequently or short duration when for other reasons) because: Homebound Reason: Leaving home requires considerable and taxing effort due to condition (Fall with hip pain, DJD, deconditioning) Attestation: My signature below is to certify that this patient is under my care and that I, or nurse practitioner, or a physician's central supply assistant working with me, has a face-to -face encounter with this patient.
== END 2017-02-28 11:10 | disposition home health service (06) | DRG 683 ==
LOC: INPPIK 23:49 → EMEROOPIK 23:49 → INPPIK 02-25 04:35
PROVIDERS: ADMIT Internal Medicine; ATTEND Internal Medicine